=== PATIENT | male | born 1965 | race Caucasian/White ===

== ENCOUNTER 2023-08-03 15:41 | Outpatient (CLI) | payer BC, SELFPAY ==
[2023-08-03 16:27] LABS: Basophils Absolute Auto 0.05 K/mm3 (0.00-0.10); Basophils Percent Auto 0.8 % (0.0-1.0); Eosinophils Percent Auto 1.6 % (1.0-6.0); Hematocrit 46.2 % (40.0-54.0); Hemoglobin 15.6 g/dL (14.0-18.0); Immature Granulocyte Absolute 0.05 K/mm3 (0.00-0.00); Immature Granulocyte Percent A 0.8 % (0.0-0.0); Lymphocytes Percent Auto 24.8 % (18.0-42.0); Mean Corpuscular HGB Conc 33.8 g/dL (32.0-36.0); Mean Corpuscular Hemoglobin 29.8 pg (27.0-31.0); Mean Corpuscular Volume 88.2 fL (78.0-102.0); Mean Platelet Volume 10.7 fl (8.7-11.0); Monocytes Absolute Auto 0.62 K/mm3 (0.10-0.90); Monocytes Percent Auto 9.6 % (2.0-11.0); Neutrophils Percent Auto 62.4 % (50.0-70.0); Platelet Count Result 200 K/mm3 (150-420); Red Blood Count 5.24 M/mm3 (4.70-6.10); Red Cell Distribution Width 13.3 % (11.6-14.4); White Blood Count 6.4 K/mm3 (4.8-10.8)
[2023-08-03 16:43] LABS: Alanine Aminotransferase 30 U/L (16-63); Albumin Level 4.1 g/dL (3.4-5.0); Alkaline Phosphatase 53 U/L (46-116); Anion Gap 8 mmol/L (8-16); Aspartate Amino Transferase 20 U/L (15-37); Bilirubin,Total 0.7 mg/dL (0.00-1.00); Blood Urea Nitrogen 19 mg/dL (7-18); Calcium 9.1 mg/dL (8.5-10.1); Carbon Dioxide 30 mmol/L (21-32); Chloride 103 mmol/L (98-108); Estimated Glomerular Filt Rate 57; Glucose 93 mg/dL (70-99); Osmolality Calculated 294 mOsm/kg (285-295); Potassium 3.5 mmol/L (3.5-5.1); Sodium 141 mmol/L (136-145); Total Protein 7.2 g/dL (6.4-8.2)
[2023-08-03 16:57] LABS: Hemoglobin A1C 5.1 % (<5.7)
== END 2023-08-03 15:42 | disposition home or self-care (01) ==
LOC: CHSLAB 15:45
PROVIDERS: PCP Nurse Practitioner Family; Visit Provider Nurse Practitioner Family
DX: H43.12 Vitreous hemorrhage, left eye (principal)
CPT/HCPCS: 36415; 80053; 83036; 85025

== ENCOUNTER → 2023-08-15 08:02 | Outpatient (CLI) | payer BC, SELFPAY ==
--- NOTE | ~2023-08-15 | MR_ITS ---
EXAMINATION: MR orbits face neck wo/w con, MR brain/brain stem wo/w con DATE: 08/15/2023 09:10 INDICATION: Vitreous hemorrhage in the left eye. TECHNIQUE: 1. Magnetic resonance imaging (MRI) of the brain and brainstem was performed without and with 20 mL M ultihance intravenous contrast. Sequences included sagittal and axial T1-weighted SE, axial diffusion -weighted FS SE, axial 3D SWAN, axial T2-weighted FLAIR, and axial T2-weighted FSE. Postcontrast axia l and coronal T1-weighted SE was obtained. Apparent diffusion coefficient (ADC) maps were created. 2. MRI of the face and orbits was performed without and with the same 20 mL MultiHance intravenous co ntrast bolus. Small gmyta-du-sibz sequences of the orbits included coronal and axial T2-weighted FS F SE and T1-weighted FSE and postcontrast axial and coronal T1-weighted FS FSE. COMPARISON: None. FINDINGS: There are no areas of restricted diffusion to suggest acute infarction. No intracranial hemorrhage or abnormal intracranial mass lesion. There are a few scattered small foci of nonspecific increased T2- weighted signal intensity in the cerebral white matter, predominantly involving the deep and perivent ricular white matter which is within normal limits for age. There are no intraparenchymal signal abno rmalities seen on the other pulse sequences. The ventricles are symmetric and normal in size. There a re no abnormal extra-axial fluid collections. Flow voids are seen in the cerebral arteries on the T2- weighted sequences consistent with their expected patency. Mild mucosal thickening in the bilateral e thmoid sinuses. Visualized orbits and soft tissues are unremarkable. There are no areas of abnormal e nhancement on the post contrast images. IMPRESSION: 1. Normal aging brain with a few scattered small foci of nonspecific white matter T2 hyperintensity, likely sequela of chronic small vessel ischemic disease. 2.Normal orbits. Reviewed, dictated and finalized at location A. R SOFTENER INSTALLER IMPRESSION: 1. Normal aging brain with a few scattered small foci of nonspecific white jessica er T2 hyperintensity, likely sequela of chronic small vessel ischemic disease. 2.Normal orbits.
== END ==
PROVIDERS: PCP Nurse Practitioner Family
DX: H43.12 Vitreous hemorrhage, left eye (principal)
CPT/HCPCS: 70543; 70553; A9577

== ENCOUNTER 2023-08-16 15:46 | Emergency (ER) | payer BC, SELFPAY ==
[2023-08-16] VITALS (50 sets, daily range): BP systolic 167–267; BP diastolic 92–157; PULSE 67–102; RESP 8–26; TEMP 36.8–37.1; O2SAT 90–99
--- NOTE | ~2023-08-16 | CT_ITS ---
EXAMINATION: CT brain wo con DATE: 08/16/2023 18:35 INDICATION: Hypertension. TECHNIQUE: Computed tomography (CT) of the head was performed without intravenous contrast. The mA wa s adjusted according to patient size. Iterative reconstruction technique was employed. The dose-lengt h product was 681.00 mGy-cm. COMPARISON: Brain MRI 08/15/2023 FINDINGS: There is no intracranial hemorrhage, acute infarction, or abnormal intracranial mass lesion . The ventricles are normal in size. The orbits are normal. There is mild mucosal thickening in the e thmoid sinuses. There is an old fracture of left nasal process of maxilla. The mastoid air cells are normal. IMPRESSION: 1. Normal brain. Reviewed, dictated and finalized at location E. BOX ROUTEMAN IMPRESSION: 1. Normal brain.
--- NOTE | ~2023-08-16 | XR_ITS ---
EXAMINATION: XR chest 1V portable DATE: 08/16/2023 16:15 INDICATION: Hypertension TECHNIQUE: frontal view of the chest was obtained. COMPARISON: Chest radiograph dated 04/11/2011 FINDINGS: The lungs remain clear with no focal airspace opacities, pulmonary edema, pleural effusion or pneumot horax. The cardiomediastinal silhouette is normal. IMPRESSION: 1. No acute cardiopulmonary disease. Reviewed, dictated and finalized at location A. H MOVING MACHINE OPERATOR
--- NOTE | 2023-08-16 15:54 | ED.GENADULT ---
HPI - General Adult General Chief complaint: Unspecified Stated complaint: high blood pressure Time Seen by Provider: 08/16/23 15:54 Source: patient Mode of arrival: ambulatory Limitations: no limitations History of Present Illness HPI narrative: 57-year-old male with a history of hypertension( noncompliant with medication), diabetes mellitus presented to outpatient clinic as directed by boilermaker helper. In the clinic the patient was noted to have an elevated blood pressure of 260/137 the patient denied any chest pain or shortness of breath no headache the patient woke up on the 31 July with blurred vision on the left eye for which she saw an boilermaker helper. He was noted to have a retinal hemorrhage. He was also seen by retinal specialist. At that point of time his blood pressure was marginally elevated. Currently the patient does not have any symptoms. Related Data Home Medications Medication Instructions Recorded Confirmed No Home Medications 08/16/23 08/16/23 Allergies Allergy/AdvReac Type Severity Reaction Status Date / Time No Known Allergies Allergy Verified 08/16/23 16:05 Review of Systems Review of Systems: All systems reviewed & are unremarkable except as noted in HPI and below Constitutional: Constitutional: Reports as per HPI and Reports no additional constitutional complaints Eyes: Eyes: Reports as per HPI Comments: Left eye blurring ENT: Reports system reviewed and no additional complaints, except as documented and Reports as per HPI Cardiovascular: Cardiovascular: Reports as per HPI and Reports no additional cardiovascular complaints Respiratory: Respiratory: Reports as per HPI and Reports no additional respiratory complaints Gastrointestinal: Gastrointestinal: Reports as per HPI and Reports no additional gastrointestinal complaints Genitourinary: Genitourinary: Reports no additional male genitourinary complaints and Reports as per HPI Musculoskeletal: Musculoskeletal: Reports no additional musculoskeletal complaints and Reports as per HPI Integumentary/Breasts: Skin/Breast: Reports system reviewed and no additional complaints, except as docu and Reports as per HPI Neurologic: Reports system reviewed and no additional complaints, except as documented and Reports as per HPI Psychiatric: Psychiatric: Reports no additional psychiatric complaints and Reports as per HPI Endocrine: Endocrine: Reports no additional endocrine complaints and Reports as per HPI Hematologic/Lymphatic: Hematologic/Lymphatic: Reports no additional hematologic/lymphatic complaints and Reports as per HPI Allergic/Immunologic: Allergic/Immunologic: Reports no additional allergic/immunologic complaints and Reports as per HPI [facility] Past Medical History Medical History (Updated 08/16/23 @ 18:51 by Devin Polk MD) Diabetes mellitus Hypertension Family History Family History (Updated 08/16/23 @ 15:26 by Faby Franks CMA) Mother Diabetes mellitus Father COPD (chronic obstructive pulmonary disease) Social History Social History (Updated 08/16/23 @ 16:23 by Devin Polk MD) Social History: nonsmoker. No history of drug use. History of alcohol use. patient thinks he drinks around 12 beers a week Exam Narrative: Blood pressure is 260/137 Const: General: healthy appearing and no acute distress Nutritional Appearance: well nourished Orientation/consciousness: patient oriented x3 Limitations: no limitations HENMT: Head: normal to inspection Ears: external ears normal Face/Nose/Sinus: Normal external nose present Face and sinus: normal facial exam Mouth: Yes Normal oral and palatal mucosa present Throat: posterior oropharynx normal Eyes: Conjunctivae: conjunctivae normal Pupils: Equal, round and reactive pupils present EOM: EOMs intact bilaterally Direct Ophthalmoscopy: no photophobia Neck: Neck: normal visual inspection Swati
--- NOTE | 2023-08-16 15:57 | ECG_ITS ---
Measurements Intervals [place] Rate: 100 P: 52 OH: 128 QRS: 48 QRSD: 127 T: 202 QT: 377 QTc: 487 Interpretive Statements SINUS TACHYCARDIA POSSIBLE LEFT ATRIAL ENLARGEMENT INTRAVENTRICULAR CONDUCTION DELAY CONSIDER INFERIOR INFARCT, AGE INDETERMINATE ST-T WAVE ABNORMALITY IN LAT/HIGH LAT LEADS- CONSIDER ISCHEMIA ABNORMAL ECG NO PREVIOUS ECG AVAILABLE FOR COMPARISON Electronically Signed On 08-16-2023 16:13:16 SCUDDING INSPECTOR by Ra Smith D.O.
[2023-08-16] MEDS: LABETALOL HCL INJ 100 MG/20 ML VIAL 20 MG IV PUSH (16:04)
[2023-08-16 16:16] LABS: Basophils Absolute Auto 0.04 K/mm3 (0.00-0.10); Basophils Percent Auto 0.6 % (0.0-1.0); Eosinophils Absolute Auto 0.13 K/mm3 (0.02-0.50); Eosinophils Percent Auto 1.9 % (1.0-6.0); Hematocrit 46.3 % (40.0-54.0); Hemoglobin 15.7 g/dL (14.0-18.0); Immature Granulocyte Absolute 0.01 K/mm3 (0.00-0.00); Immature Granulocyte Percent A 0.1 % (0.0-0.0); Lymphocytes Absolute Auto 1.38 K/mm3 (1.10-4.50); Lymphocytes Percent Auto 20.4 % (18.0-42.0); Mean Corpuscular HGB Conc 33.9 g/dL (32.0-36.0); Mean Corpuscular Hemoglobin 29.4 pg (27.0-31.0); Mean Corpuscular Volume 86.7 fL (78.0-102.0); Mean Platelet Volume 10.2 fl (8.7-11.0); Monocytes Absolute Auto 0.64 K/mm3 (0.10-0.90); Monocytes Percent Auto 9.5 % (2.0-11.0); Neutrophils Absolute Auto 4.6 K/mm3 (1.7-7.2); Neutrophils Percent Auto 67.5 % (50.0-70.0); Platelet Count Result 237 K/mm3 (150-420); Red Blood Count 5.34 M/mm3 (4.70-6.10); Red Cell Distribution Width 13.2 % (11.6-14.4); White Blood Count 6.8 K/mm3 (4.8-10.8)
[2023-08-16] MEDS: cloNIDine HCL 0.2 MG TABLET PO (16:28)
[2023-08-16] MEDS: THIAMINE HCL 200 MG/2 ML VIAL 100 MG IV PUSH (16:29)
[2023-08-16] MEDS: LORazepam INJ (*CRX) 2 MG/ML VIAL 1 MG IV PUSH (16:31)
[2023-08-16 16:36] LABS: Partial Thromboplastin Time 30.1 SEC (23.90-30.70); Prothrombin Time 10.9 Seconds (9.50-12.10)
[2023-08-16 16:44] LABS: Alanine Aminotransferase 38 U/L (16-63); Albumin Level 4.3 g/dL (3.4-5.0); Alkaline Phosphatase 48 U/L (46-116); Anion Gap 13 mmol/L (8-16); Aspartate Amino Transferase 27 U/L (15-37); Bilirubin,Total 0.8 mg/dL (0.00-1.00); Blood Urea Nitrogen 18 mg/dL (7-18); Calcium 8.6 mg/dL (8.5-10.1); Carbon Dioxide 24 mmol/L (21-32); Chloride 98 mmol/L (98-108); Estimated CRCL calculation 60 ml/min; Estimated Glomerular Filt Rate 52; Glucose 106 mg/dL (70-99); NT Pro B Type Natriuretic Pept 1722 pg/mL (0-125); Osmolality Calculated 281 mOsm/kg (285-295); Potassium 3.3 mmol/L (3.5-5.1); Sodium 135 mmol/L (136-145); Total Protein 7.3 g/dL (6.4-8.2)
[2023-08-16 16:45] LABS: Lactic Acid Reflex 1.1 mmol/L (0.4-2.0)
--- NOTE | 2023-08-16 16:49 | PC.NURSE ---
HAS ARRIVED AT BEDSIDE. PT DENIES ANY NEEDS OR COMPLAINTS. PT REMAINS ASYMPTOMATIC TO HIS HTN AT THIS TIME. BP IS IMPROVING POST MEDICATION. WILL CONTINUE TO MONITOR.
[2023-08-16 16:52] LABS: Thyroid Stimulating Hormone 11.08 uIU/mL (0.36-3.74); Troponin I 47.4 ng/L (0.00-60.4); Uric Acid 9.3 mg/dL (3.5-7.2)
[2023-08-16 17:13] LABS: Appearance Urine Clear (Clear); Bilirubin Urine Negative (Negative); Color Urine Light Yellow (Yellow); Glucose Urine UA Negative (Negative); Ketones Urine Negative (Negative); Leukocyte Esterase Ur Negative LEU/UL (Negative); Nitrate Urine Negative (Negative); Protein Urine Negative (Negative); Specific Grav Ur <= 1.005 (1.010-1.020); Urobilinogen Urine 0.2 mg/dL (0.2-1.0)
[2023-08-16 17:16] LABS: Add Urine Microscopic? NO; Blood Urine Negative (Negative)
--- NOTE | 2023-08-16 17:53 | PC.NURSE ---
IS REQUESTING [facility] AT [facility]. CALL PLACED TO CALL CENTER.
--- NOTE | 2023-08-16 18:56 | PC.NURSE ---
son and are at bedside. all have been updated on pt status. pt is awaiting room assignment at [facility] at this time. [facility] notified with results. pt denies any needs or complaints. bp improving.
--- NOTE | 2023-08-16 19:05 | PC.NURSE ---
patient resting on stretcher, spouse and son at bedside. update provided and patient denies needs.
--- NOTE | 2023-08-16 20:41 | PC.NURSE ---
patient update provided including room assignment at transfer facility. spouse and son remains at bedside. patient aware of departure pending EMS arrival. patient ambulatory to bathroom at this time, denies needs or complaints.
--- NOTE | 2023-08-16 20:49 | PC.NURSE ---
pt given ice water, reconnected to monitors after ambulatory to bathroom. family remain at bedside.
[2023-08-22 12:41] LABS: PRA 1.38 ng/mL/h (0.25-5.82)
[2023-08-23 10:42] LABS: Metanephrine, Free 64 pg/mL (<=57); Normetanephrine, Free 298 pg/mL (<=148); Total, Free (MN + NMN) 362 pg/mL (<=205)
== END 2023-08-16 21:12 | disposition short-term general hospital (02) ==
PROVIDERS: Emergency Provider Internal Medicine Critical Care Medicine; PCP Nurse Practitioner Family
DX: I16.1 Hypertensive emergency (principal); E87.6 Hypokalemia; E11.9 Type 2 diabetes mellitus without complications; I10 Essential (primary) hypertension
CPT/HCPCS: 36415; 70450; 71045; 80053; 81003; 82088; 83605; 83835; 83880; 84244; 84443; 84484; 84550; 85025; 85610; 85730; 93005; 96374; 96375; 99285; A9270; J2060; J3411

== ENCOUNTER 2023-08-24 15:31 | Outpatient (CLI) | payer BC, SELFPAY ==
[2023-08-24 16:11] LABS: Anion Gap 11 mmol/L (8-16); Blood Urea Nitrogen 22 mg/dL (7-18); Calcium 8.5 mg/dL (8.5-10.1); Carbon Dioxide 27 mmol/L (21-32); Chloride 102 mmol/L (98-108); Estimated Glomerular Filt Rate 56; Glucose 97 mg/dL (70-99); Osmolality Calculated 293 mOsm/kg (285-295); Potassium 4.5 mmol/L (3.5-5.1); Sodium 140 mmol/L (136-145)
== END 2023-08-24 15:32 | disposition home or self-care (01) ==
LOC: CHSLAB 15:32
PROVIDERS: PCP Nurse Practitioner Family; Visit Provider Nurse Practitioner Family
DX: I10 Essential (primary) hypertension (principal)
CPT/HCPCS: 36415; 80048

== ENCOUNTER 2023-09-06 15:29 | Outpatient (CLI) | payer BC, SELFPAY ==
[2023-09-06 16:10] LABS: Cholesterol 194 mg/dL (0-200); HDL Direct 43 mg/dL (40-60); LDL Cholesterol Calculated 128 mg/dL (<130); Triglycerides 115 mg/dL (0-150)
[2023-09-06 16:18] LABS: Thyroid Stimulating Hormone Reflex 7.95 u/IU/mL (0.36-3.74)
[2023-09-09 16:52] LABS: Metanephrine, Free 46 pg/mL (<=57); Normetanephrine, Free 189 pg/mL (<=148); Total, Free (MN + NMN) 235 pg/mL (<=205)
== END 2023-09-06 15:30 | disposition home or self-care (01) ==
LOC: CHSLAB 15:31
PROVIDERS: PCP Nurse Practitioner Family; Visit Provider Internal Medicine Cardiovascular Disease
DX: I10 Essential (primary) hypertension (principal)
CPT/HCPCS: 36415; 80061; 83835; 84439; 84443

== ENCOUNTER 2023-09-19 15:33 | Outpatient (CLI) | payer BC, SELFPAY ==
[2023-09-19 16:27] LABS: Free T3 2.31 pg/mL (2.18-3.98); Free T4 Free Thyroxine 0.96 ng/dL (0.76-1.46); Thyroid Stimulating Hormone 9.68 uIU/mL (0.36-3.74)
[2023-09-23 05:59] LABS: Thyroid Peroxidase Antibodies <1 IU/mL (<9)
== END 2023-09-19 15:34 | disposition home or self-care (01) ==
LOC: CHSLAB 15:34
PROVIDERS: PCP Nurse Practitioner Family; Visit Provider Nurse Practitioner Family
DX: R79.89 Other specified abnormal findings of blood chemistry (principal)
CPT/HCPCS: 36415; 84439; 84443; 84481; 86376

== ENCOUNTER 2023-11-06 15:26 | Outpatient (CLI) | payer BC, SELFPAY ==
[2023-11-06 16:16] LABS: Thyroid Stimulating Hormone 6.14 uIU/mL (0.36-3.74)
== END 2023-11-06 15:27 | disposition home or self-care (01) ==
LOC: CHSLAB 15:28
PROVIDERS: PCP Nurse Practitioner Family; Visit Provider Nurse Practitioner Family
DX: R79.89 Other specified abnormal findings of blood chemistry (principal)
CPT/HCPCS: 36415; 84443

== ENCOUNTER 2024-03-21 15:36 | Outpatient (CLI) | payer BC, SELFPAY ==
[2024-03-21 16:26] LABS: Creatinine Urine 16.68 mg/dL (40-278); MALB Creatinine Ratio 77.9 mg/g (0-30); Microalbumin Urine Random < 13.0 mg/L
[2024-03-21 16:32] LABS: Alanine Aminotransferase 28 U/L (16-63); Albumin Level 4.3 g/dL (3.4-5.0); Alkaline Phosphatase 67 U/L (46-116); Anion Gap 11 mmol/L (4-12); Aspartate Amino Transferase 18 U/L (15-37); Bilirubin,Total 0.6 mg/dL (0.00-1.00); Blood Urea Nitrogen 24 mg/dL (7-18); Calcium 8.7 mg/dL (8.5-10.1); Carbon Dioxide 26 mmol/L (21-32); Chloride 101 mmol/L (98-108); Estimated Glomerular Filt Rate 53; Free T4 Free Thyroxine 0.95 ng/dL (0.76-1.46); Glucose 95 mg/dL (70-99); Osmolality Calculated 290 mOsm/kg (285-295); Potassium 4.1 mmol/L (3.5-5.1); Sodium 138 mmol/L (136-145); Thyroid Stimulating Hormone 9.87 uIU/mL (0.36-3.74); Total Protein 7.1 g/dL (6.4-8.2)
[2024-03-23 04:33] LABS: DHEA-Sulfate 142 mcg/dL (32-279)
[2024-03-25 12:29] LABS: Thyroid Peroxidase Antibodies <1 IU/mL (<9)
[2024-03-25 13:58] LABS: Metanephrine, Free 45 pg/mL (<=57); Normetanephrine, Free 163 pg/mL (<=148); Total, Free (MN + NMN) 208 pg/mL (<=205)
[2024-03-28 19:08] LABS: Thyroid Stimulating Immunoglob <89 % baseline (<140)
[2024-04-02 14:48] LABS: Thyrotropin Receptor Antibody <1.00 IU/L (< OR = 2.00)
[2024-04-05 15:53] LABS: Catecholamines, Total <387 pg/mL
== END 2024-03-21 15:37 | disposition home or self-care (01) ==
LOC: CHSLAB 15:38
PROVIDERS: PCP Nurse Practitioner Family; Visit Provider Internal Medicine
DX: R79.89 Other specified abnormal findings of blood chemistry (principal); I10 Essential (primary) hypertension; I16.1 Hypertensive emergency
CPT/HCPCS: 36415; 80053; 82043; 82088; 82384; 82627; 83519; 83835; 84244; 84439; 84443; 84445; 86376

== ENCOUNTER 2024-03-25 07:19 | Outpatient (CLI) | payer BC, SELFPAY ==
--- NOTE | ~2024-03-25 | CT_ITS ---
Non-contrast CT scan of the Abdomen and Pelvis Clinical indication: Abnormal GFR Technique: 2.5 mm axial scans were obtained through the abdomen and pelvis without intravenous or or al contrast. Dose reduction technique was used on this scan by utilizing automated exposure control a nd iterative reconstruction technique. The dose-length product (DLP) was 757.02 mGy-cm. Findings: Images through the lung bases reveal no abnormalities. There is no evidence of renal or ureteral calculi. The kidneys and the ureters are nondilated. The liver, spleen, pancreas, gallbladder, and adrenals appear normal. There are atherosclerotic calci fications of the aorta. There is no evidence of bowel obstruction. Images through the pelvis were performed. There is no evidence of ascites or lymphadenopathy. Urinary bladder unremarkable. No pelvic mass seen. Impression: No acute abnormality. Reviewed, dictated and finalized at [facility]. Impression: No acute abnormality.
[2024-03-30 15:28] LABS: Metanephrine, Total Urine 506 mcg/24 h (224-832); Metanephrine, Urine 88 mcg/24 h (90-315); Normetanephrine, Urine 418 mcg/24 h (122-676)
== END 2024-03-25 07:20 | disposition home or self-care (01) ==
LOC: CHSIMG 07:20
PROVIDERS: PCP Nurse Practitioner Family; Visit Provider Internal Medicine
DX: I10 Essential (primary) hypertension (principal); I16.1 Hypertensive emergency; R79.89 Other specified abnormal findings of blood chemistry
CPT/HCPCS: 74176; 83835

== ENCOUNTER 2024-04-12 16:13 | Outpatient (NON) | payer BC, SELFPAY ==
[2024-04-18 23:53] LABS: PRA 7.14 ng/mL/h (0.25-5.82)
== END 2024-04-12 16:14 | disposition home or self-care (01) ==
PROVIDERS: Visit Provider Internal Medicine
DX: I16.1 Hypertensive emergency (principal); R79.89 Other specified abnormal findings of blood chemistry; I10 Essential (primary) hypertension
CPT/HCPCS: 36415; 82088; 84244

== ENCOUNTER 2024-07-04 15:34 | Outpatient (CLI) | payer BC, SELFPAY ==
[2024-07-04 16:32] LABS: Alanine Aminotransferase 28 U/L (16-63); Albumin Level 4.2 g/dL (3.4-5.0); Alkaline Phosphatase 65 U/L (46-116); Anion Gap 11 mmol/L (4-12); Aspartate Amino Transferase 20 U/L (15-37); Bilirubin,Total 0.5 mg/dL (0.00-1.00); Blood Urea Nitrogen 26 mg/dL (7-18); Calcium 9.5 mg/dL (8.5-10.1); Carbon Dioxide 28 mmol/L (21-32); Chloride 103 mmol/L (98-108); Estimated Glomerular Filt Rate > 60; Free T4 Free Thyroxine 0.94 ng/dL (0.76-1.46); Potassium 4.2 mmol/L (3.5-5.1); Sodium 142 mmol/L (136-145); Thyroid Stimulating Hormone 8.44 uIU/mL (0.36-3.74)
[2024-07-04 16:40] LABS: Glucose 92 mg/dL (70-99); Osmolality Calculated 298 mOsm/kg (285-295)
== END 2024-07-04 15:35 | disposition home or self-care (01) ==
LOC: CHSLAB 15:36
PROVIDERS: PCP Nurse Practitioner Family; Visit Provider Internal Medicine
DX: R79.89 Other specified abnormal findings of blood chemistry (principal); N18.9 Chronic kidney disease, unspecified; I12.9 Hypertensive chronic kidney disease with stage 1 through stage 4 chronic kidney disease, or unspecified chronic kidney disease
CPT/HCPCS: 36415; 80053; 84439; 84443

== ENCOUNTER 2024-10-22 16:21 | Outpatient (NON) | payer BC, SELFPAY ==
--- OUTSIDE RECORDS SUMMARY | 2024-10-22 18:35 | XMS_ITS | Clinical Summary ---
Author Organization [facility] Address [address] [place] [address] Care Team Providers Care Antique Furniture Restorer Name Role Phone Dorinda Duque BEVERAGE MANAGER Primary Care Provider [phone] Allergies No known active allergies Medications No known medications Active Problems Problem Noted Date Diagnosed Date Hypertensive urgency 08/16/2023 Social History Tobacco Use Types Packs/Day Years Used Date Smoking Tobacco: Never Smokeless Tobacco: Never Tobacco Cessation:Counseling Given: Not Answered [facility] Utilities Answer Date Recorded In the past 12 months has e [employer], oil, or water [employer] threatened to shut off services in your home? No 08/17/2023 Humiliation, Afraid, Rape, and Kick questionnair e Answer Date Recorded Within the last year, have y ou been afraid of your partner or ex-partner? No 08/17/2023 Within the last year, have y ou been humiliated or emotionally abused in other ways by your partner or ex-partner? No Within the last year, have y ou been kicked, hit, slapped, or otherwise physically hurt by your partner or ex-partner? No 08/17/2023 Within the last year, have y ou been raped or forced to have any kind of sexual activity by your partner or ex-partner? No 08/17/2023 Social Connection and Isolat ion Panel [NHANES] Answer Date Recorded In a typical week, how many times do you talk on the phone with family, friends, or neighbors? More than three times a week 08/17/2023 How often do you get togethe r with friends or relatives? More than three times a week 08/17/2023 How often do you attend [facility] or hindu services? Never 08/17/2023 Do you belong to any clubs o r organizations such as worship groups, unions, fraternal or athletic groups, or school groups? No 08/17/2023 How often do you attend meet ings of the clubs or organizations you belong to? Never 08/17/2023 Are you , , di vorced, , never , or living with a partner? 08/17/2023 AUDIT-C Answer Date Recorded Q1: How often do you have a drink containing alcohol? 4 or more times a week 08/17/2023 Q2: How many drinks containi ng alcohol do you have on a typical day when you are drinking? 1 or 2 Q3: How often do you have si x or more drinks on one occasion? Weekly 08/17/2023 Overall Financial Resource Strain (CARDIA) Answe r Date Recorded How hard is it for you to pa y for the very basics like food, housing, medical care, and heating? Not hard at all 08/17/2023 [facility] - Occupational Stress Questionnaire Answer Date Recorded Do you feel stress - tense, restless, nervous, or anxious, or unable to sleep at night because your mind is troubled all the time - these days? Not at all 08/17/2023 Hunger Vital Sign Answer Date Recorded Within the past 12 months, y ou worried that your food would run out before you got the money to buy more. Never true 08/17/19 24 Within the past 12 months, t he food you bought just didn't last and you didn't have money to get more. Never true 08/17/2023 PRAPARE - Transportation Answer Date Re corded In the past 12 months, has l ack of transportation kept you from medical appointments or from getting medications? No 07/31 In the past 12 months, has l ack of transportation kept you from meetings, work, or from getting things needed for daily living? No 08/17/2023 Housing Stability Vital Sign Answer Ck e Recorded In the last 12 months, was t here a time when you were not able to pay the mortgage or rent on time? No 08/17/2023 In the last 12 months, how many places have you lived? 1 08/17/2023 In the last 12 months, was t here a time when you did not have a steady place to sleep or slept in a prison (including now)? No 08/17/2023 Sex and Gender Information Value Date Recorded Sex Assigned at Not on file Legal Sex Male 5:48 PM PLAIN CLOTHES POLICE OFFICER Gender Identity Not on file Sexual Orientation Not on file Last Filed Vital Signs Vital Sign Reading Time Taken Comments Blood Pressure 148/70 08/19/2023 12:14 PM PLAIN CLOTHES POLICE OFFICER Pulse 72 08/19/2023 12:14 PM PLAIN CLOTHES POLICE OFFICER Temperature 36.7 C (98.1 F) 08/19/2023 7:41 AM PLAIN CLOTHES POLICE OFFICER Respiratory Rate 18 08/19/2023 4:12 AM PLAIN CLOTHES POLICE OFFICER Oxygen Saturation 99% 08/19/2023 8:58 AM PLAIN CLOTHES POLICE OFFICER Inhaled Oxygen Concentration - - Weight 97.5 kg (215 lb) 08/16/2023 10:33 PM PLAIN CLOTHES POLICE OFFICER Height 177.8 cm (5' 10 ) 08/16/2023 10:33 PM PLAIN CLOTHES POLICE OFFICER Body Mass Index 30.85 08/16/2023 10:33 PM PLAIN CLOTHES POLICE OFFICER Plan of Treatment Health Maintenance Due Date Last Done Comments Colorectal Cancer Screening Colonoscopy (10 Years) 1965 Annual Physical 12/13/1966 Hepatitis C 12/13/1981 DTaP, Tdap and Td Vaccines (1 - Tdap) 12/13/1982 Zoster Vaccines (1 of 2) 12/13/2013 COVID-19 Vaccine ( season) 2024 05/30/2023, 06/13/2022, 07/21/2021, Additional history exists Influenza Adult (#1) 2024 05/30/2023, 06/13/20 22 RSV Immunization or 60+ Years (1 - 1-dose 75+ series) 12/13/2038 Meningococcal B Vaccine Aged Out No l onger eligible based on patient's age to complete this topic Meningococcal Vaccine Aged Out No cole alireza eligible based on patient's age to complete this topic Pneumococcal Vaccine: Pediatrics (0 to 5 Years) and At-Risk Patients (6 to 64 Years) Aged Out No longer eligible based on patient's age to complete this topic RSV Immunizations Under 20 Months Aged Out No longer eligible based on patient's age to complete this topic Insurance [facility] Advance Directives * Full Code (Latest Code Status on File) Date Activated Date Inactivated Comments 08/16/2023 10:40 PM 08/19/2023 3:25 PM Care Teams Antique Furniture Restorer Relationship Specialty Start Date End Date Dorinda Duque FNP [address] [place] [phone] PCP - General Nurse Practitioner Family 08/16/23
== END 2024-10-22 16:22 | disposition home or self-care (01) ==
PROVIDERS: Visit Provider Family Medicine
DX: R22.9 Localized swelling, mass and lump, unspecified (principal)
CPT/HCPCS: 88305

== ENCOUNTER 2024-10-31 08:06 | Outpatient (CLI) | payer BC, SELFPAY ==
--- OUTSIDE RECORDS SUMMARY | 2024-10-31 08:14 | XMS_ITS | Clinical Summary ---
Author Organization [facility] Address [address] [place] [address] Care Team Providers Care Dam Tender Assistant Name Role Phone Dorinda Duque DRAPERY INSTALLER Primary Care Provider [phone] Allergies No known active allergies Medications No known medications Active Problems Problem Noted Date Diagnosed Date Hypertensive urgency 08/16/2023 Social History Tobacco Use Types Packs/Day Years Used Date Smoking Tobacco: Never Smokeless Tobacco: Never Tobacco Cessation:Counseling Given: Not Answered [facility] Utilities Answer Date Recorded In the past 12 months has e [employer], oil, or water [employer] threatened to shut off services in your [...] week 08/17/2023 How often do you attend [facility] or amish services? Never 08/17/2023 Do you belong to any clubs o r organizations such as nondenominational groups, unions, fraternal or athletic groups, or [...] and heating? Not hard at all 08/17/2023 [facility] - Occupational Stress [...] place to sleep or slept in a long-term (including now)? No 08/17/2023 Sex and Gender Information Value Date Recorded Sex Assigned at Not on file Legal Sex Male 5:48 PM PHOTOGRAPHIC PRESS SCREWMAKER Gender Identity Not on file Sexual Orientation Not on file Last Filed Vital Signs Vital Sign Reading Time Taken Comments Blood Pressure 148/70 08/19/2023 12:14 PM PHOTOGRAPHIC PRESS SCREWMAKER Pulse 72 08/19/2023 12:14 PM PHOTOGRAPHIC PRESS SCREWMAKER Temperature 36.7 C (98.1 F) 08/19/2023 7:41 AM PHOTOGRAPHIC PRESS SCREWMAKER Respiratory Rate 18 08/19/2023 4:12 AM PHOTOGRAPHIC PRESS SCREWMAKER Oxygen Saturation 99% 08/19/2023 8:58 AM PHOTOGRAPHIC PRESS SCREWMAKER Inhaled Oxygen Concentration - - Weight 97.5 kg (215 lb) 08/16/2023 10:33 PM PHOTOGRAPHIC PRESS SCREWMAKER Height 177.8 cm (5' 10 ) 08/16/2023 10:33 PM PHOTOGRAPHIC PRESS SCREWMAKER Body Mass Index 30.85 08/16/2023 10:33 PM PHOTOGRAPHIC PRESS SCREWMAKER Plan of Treatment Health Maintenance Due Date Last Done Comments Colorectal Cancer Screening Colonoscopy (10 Years) 1965 Annual Physical 12/13/1966 Hepatitis C 12/13/1981 DTaP, Tdap and Td Vaccines (1 - Tdap) 12/13/1982 Zoster Vaccines (1 of 2) 12/13/2013 COVID-19 Vaccine ( season) 2024 05/30/2023, 06/13/2022, 07/21/2021, Additional history exists RSV Immunization or 60+ Years (1 - [...] patient's age to complete this topic Insurance [facility] Advance Directives * Full Code (Latest Code Status on File) Date Activated Date Inactivated Comments 08/16/2023 10:40 PM 08/19/2023 3:25 PM Care Teams Dam Tender Assistant Relationship Specialty Start Date End Date Dorinda Duque FNP [address] [place] [phone] PCP - General Nurse Practitioner Family 08/16/23
[2024-10-31 08:17] LABS: Basophils Absolute Auto 0.05 K/mm3 (0.00-0.10); Basophils Percent Auto 0.9 % (0.0-1.0); Eosinophils Absolute Auto 0.11 K/mm3 (0.02-0.50); Eosinophils Percent Auto 2.1 % (1.0-6.0); Hematocrit 44.9 % (40.0-54.0); Immature Granulocyte Absolute 0.04 K/mm3 (0.00-0.00); Immature Granulocyte Percent A 0.8 % (0.0-0.0); Lymphocytes Absolute Auto 1.02 K/mm3 (1.10-4.50); Lymphocytes Percent Auto 19.2 % (18.0-42.0); Mean Corpuscular HGB Conc 33.4 g/dL (32-36); Mean Corpuscular Hemoglobin 29.6 pg (27.0-31.0); Mean Corpuscular Volume 88.6 fL (78.0-102.0); Mean Platelet Volume 10.1 fl (8.7-11.0); Monocytes Absolute Auto 0.63 K/mm3 (0.10-0.90); Monocytes Percent Auto 11.9 % (2.0-11.0); Neutrophils Absolute Auto 3.46 K/mm3 (1.70-7.20); Neutrophils Percent Auto 65.1 % (50.0-70.0); Platelet Count Result 228 K/mm3 (150-420); Red Blood Count 5.07 M/mm3 (4.70-6.10); Red Cell Distribution Width 13.2 % (11.6-14.4); White Blood Count 5.3 K/mm3 (4.8-10.8)
[2024-10-31 08:26] LABS: Hemoglobin A1C 5.2 % (<5.7)
[2024-10-31 08:59] LABS: Alanine Aminotransferase 23 U/L (16-63); Alkaline Phosphatase 67 U/L (46-116); Anion Gap 9 mmol/L (4-12); Aspartate Amino Transferase 23 U/L (15-37); Bilirubin,Total 0.7 mg/dL (0.00-1.00); Blood Urea Nitrogen 23 mg/dL (7-18); Carbon Dioxide 29 mmol/L (21-32); Chloride 106 mmol/L (98-108); Cholesterol 229 mg/dL (0-200); Estimated Glomerular Filt Rate 57; Free T4 Free Thyroxine 1.07 ng/dL (0.76-1.46); Glucose 101 mg/dL (70-99); HDL Direct 50 mg/dL (40-60); LDL Cholesterol Calculated 162 mg/dL (<130); Osmolality Calculated 301 mOsm/kg (285-295); Potassium 4.2 mmol/L (3.5-5.1); Sodium 144 mmol/L (136-145); Thyroid Stimulating Hormone 4.81 uIU/mL (0.36-3.74); Triglycerides 83 mg/dL (0-150)
== END 2024-10-31 08:07 | disposition home or self-care (01) ==
PROVIDERS: PCP Nurse Practitioner Family; Visit Provider Nurse Practitioner Family
DX: Z00.00 Encounter for general adult medical examination without abnormal findings (principal); E03.9 Hypothyroidism, unspecified
CPT/HCPCS: 36415; 80053; 80061; 83036; 84439; 84443; 85025

== ENCOUNTER 2024-12-20 11:37 | Outpatient (CLI) | payer BC, SELFPAY ==
[2024-12-20 12:38] LABS: Cholesterol 214 mg/dL (0-200); HDL Direct 51 mg/dL; LDL Cholesterol Calculated 140 mg/dL (<130); Triglycerides 113 mg/dL (<150)
[2024-12-20 12:56] LABS: Free T4 Free Thyroxine 1.64 ng/dL (0.78-2.19)
== END 2024-12-20 11:38 | disposition home or self-care (01) ==
PROVIDERS: PCP Nurse Practitioner Family; Visit Provider Nurse Practitioner Family
DX: E03.9 Hypothyroidism, unspecified (principal); E78.00 Pure hypercholesterolemia, unspecified
CPT/HCPCS: 36415; 80061; 84439; 84443

== ENCOUNTER 2025-04-02 15:39 | Outpatient (CLI) | payer BC, SELFPAY ==
[2025-04-02 16:29] LABS: Cholesterol 136 mg/dL (0-200); HDL Direct 47 mg/dL; Triglycerides 145 mg/dL (<150)
[2025-04-02 16:46] LABS: Free T4 Free Thyroxine 1.39 ng/dL (0.78-2.19)
--- OUTSIDE RECORDS SUMMARY | 2025-04-02 16:59 | XMS_ITS | Clinical Summary ---
Author Organization [facility] Address [address] [place] [address] Care Team Providers Care Automation Controls Specialist Name Role Phone Dorinda Duque ARTICULATION OFFICER Primary Care Provider [phone] Allergies No known active allergies Medications No known medications Active Problems Problem Noted Date Diagnosed Date Hypertensive urgency 08/16/2023 Social History Tobacco Use Types Packs/Day Years Used Date Smoking Tobacco: Never Smokeless Tobacco: Never Tobacco Cessation:Counseling Given: Not Answered [facility] Utilities Answer Date Recorded In the past 12 months has e [employer], oil, or water [employer] threatened to shut off services in your [...] week 08/17/2023 How often do you attend [facility] or [facility] services? Never 08/17/2023 Do you belong to any clubs o r organizations such as jew groups, unions, fraternal or athletic groups, or [...] and heating? Not hard at all 08/17/2023 [facility] - Occupational [...] place to sleep or slept in a group home (including now)? No 08/17/2023 Sex and Gender Information Value Date Recorded Sex Assigned at Not on file Legal Sex Male 5:48 PM DISPLAY COORDINATOR Gender Identity Not on file Sexual Orientation Not on file Last Filed Vital Signs Vital Sign Reading Time Taken Comments Blood Pressure 148/70 08/19/2023 12:14 PM DISPLAY COORDINATOR Pulse 72 08/19/2023 12:14 PM DISPLAY COORDINATOR Temperature 36.7 C (98.1 F) 08/19/2023 7:41 AM DISPLAY COORDINATOR Respiratory Rate 18 08/19/2023 4:12 AM DISPLAY COORDINATOR Oxygen Saturation 99% 08/19/2023 8:58 AM DISPLAY COORDINATOR Inhaled Oxygen Concentration - - Weight 97.5 kg (215 lb) 08/16/2023 10:33 PM DISPLAY COORDINATOR Height 177.8 cm (5' 10) 08/16/2023 10:33 PM DISPLAY COORDINATOR Body Mass Index 30.85 08/16/2023 10:33 PM DISPLAY COORDINATOR Plan of Treatment Health Maintenance Due Date Last Done Comments Colorectal Cancer Screening Colonoscopy (10 Years) 1965 Annual Physical 12/13/1966 Hepatitis C 12/13/1981 DTaP, Tdap and Td Vaccines (1 - Tdap) 12/13/1982 Pneumococcal Vaccine: 50+ Years (1 of 1 - PCV) 12/13/2013 Zoster Vaccines (1 of 2) 12/13/2013 COVID-19 Vaccine ( - season) 2024 05/30/2023, 06/13/2022, 07/21/2021, Additional history [...] patient's age to complete this topic Insurance [facility] Advance Directives * Full Code (Latest Code Status on File) Date Activated Date Inactivated Comments 08/16/2023 10:40 PM 08/19/2023 3:25 PM Care Teams Automation Controls Specialist Relationship Specialty Start Date End Date Dorinda Duque FNP [address] [place] [phone] PCP - General Nurse Practitioner Family 08/16/23
[2025-04-02 17:00] LABS: Thyroid Stimulating Hormone 5.170 uIU/mL (0.465-4.680)
== END 2025-04-02 15:40 | disposition home or self-care (01) ==
LOC: CHSLAB 15:41
PROVIDERS: PCP Nurse Practitioner Family; Visit Provider Nurse Practitioner Family
DX: E03.9 Hypothyroidism, unspecified (principal); E78.5 Hyperlipidemia, unspecified
CPT/HCPCS: 36415; 80061; 84439; 84443

== ENCOUNTER 2025-05-09 02:35 | Day surgery (SDC) | payer BC, SELFPAY ==
[2025-05-05 16:09] VITALS: BMI 30.9
--- NOTE | 2025-05-05 16:16 | SUR.PREOP ---
[facility] has started construction of its new state of the art ER which will open Spring 2026. With this, we anticipate parking may be a challenge for some our surgical patients and families. Parking spaces are limited but are available for all Surgical, obstetrics, and ER patients sharing this lot. If you arrive and find you are having a hard time finding a parking space, please note that we understand the challenges, please drive around the hospital and park near Hospital Entrance 1. When you enter this entrance, you can ask a volunteer to direct or take you back to the surgical waiting area to check in. We appreciate everyone?s understanding of these expected challenges while we build for your future. Report to the Outpatient Waiting Room, entrance under the green pavilion located off [address], at time _6am on date _05/09/25 . Planned Procedure Time: ___730am .? Time changes happen often and if your time is changed the preop area will call you the afternoon before. - You and your visitor will be asked to self-screen and do not enter if you have any COVID symptoms. Please call surgeon if you need to reschedule. - A mask is optional within the hospital at this time. Patients may have a light meal before procedure. Take only the following medications with a SIP of water on the morning of surgery: all scheduled medication. DO NOT STOP ANY OF YOUR OTHER PRESCRIPTION MEDICATIONS PRIOR TO SURGERY EXCEPT THE FOLLOWING Hold all vitamins and supplements for 3 days per anesthesiologist. Medications to discontinue per physician n/a____ Date to take last dose Please no make-up, nail croatian, hairspray, perfume, deodorant, or body powder the day of surgery.? No jewelry (including any body piercings) or valuables the day of surgery, leave them at home.? Please take a shower or bath the night before, or the morning of, surgery with an antibacterial soap.? Wear comfortable, loose fitting clothing.? Children are encouraged to wear pajamas. - Jewelry must be removed prior to entering the operating room.? Rings and piercings that are not removed may be cut off. - The hospital will not accept responsibility for valuables.? - Please leave all valuables, including medications, at home the day of surgery. If you are going home after surgery, a licensed airport driver must drive you home.? - NO public transportation without another adult if you receive anesthesia. - We recommend that an adult stay with you for 24 hours following discharge. - We also recommend that you do not drive, make important decision, drink alcoholic beverages, or take any drugs that were not prescribed by your health care provider for at least 24 hours after your discharge time. Follow any additional instructions given to you from your surgeon. Telephone instructions given to ___Pat and asked if any additional questions and then verbalized understanding. Patient advised to call surgeon office or pre surgery nurse liaison [phone] if any additional questions.
[2025-05-09 08:05] VITALS: BP 163/76; PULSE 67; RESP 16; TEMP 36.2; O2SAT 98
--- NOTE | 2025-05-09 09:49 | WPDHPUPDATE1 ---
History and Physical Update Update Date/Time: 05/09/25 09:49 History and Physical has been reviewed, including an updated exam of the patient. There are NO changes in the patient's condition. Risks, benefits, and alternatives have been discussed and questions answered. Patient agrees to proceed with procedure.
[2025-05-09 10:00] VITALS: BP 131/66; PULSE 79; RESP 20; O2SAT 97
[2025-05-09 10:11] VITALS: BP 179/90; PULSE 71; RESP 18; O2SAT 96
[2025-05-09] MEDS: LIDO 1%/EPINEPHRINE 1:100,000 20 ML VIAL INFILTRATE (10:13)
[2025-05-09] MEDS: BUPivacaine HCL 0.5% 10 ML AMP 20 ML INFILTRATE (10:14)
--- NOTE | 2025-05-09 10:17 | S_PTH ---
PATIENT: Matt Brody LOC: [facility] U#:[id number] AGE/SX: 59/M ROOM: RE05/09/[address]: Xavi Diggs MD : 1965 BED: DIS: 05/09/2025 SPEC #: [id number] RECD: 05/09/25 11:25 STATUS: LETTY REQ #: [id number] ANTIONETTE: 05/09/25 10:[address]: Xavi Diggs DEPT: [facility] Surgical RECD BY: William Israel ENTERED: 05/09/25 11:25 SP TYPE: Surgical OTHR DR: Dorinda Duque APRN Tissues: A - Cyst Procedures: Hematoxylin and Eosin Stain Gross and Microscopic Level 4
[2025-05-09 10:21] VITALS: BP 170/89; PULSE 72; RESP 18; O2SAT 95
[2025-05-09 10:27] VITALS: BP 171/90; PULSE 72; RESP 18; O2SAT 95
[2025-05-09 10:35] VITALS: BP 171/83; PULSE 68; O2SAT 97
--- NOTE | 2025-05-09 10:43 | W.PM.PROC2 ---
Procedure Note - Detailed Date of Procedure 05/09/25 Pre-op Diagnosis Ruptured sebaceous cyst mid back Post-op Diagnosis Same Procedure Performed Excision ruptured right upper back sebaceous cyst with 4cm intermediate layered wound closure. Surgeon Xaiv Diggs MD Anesthesia Local Indications Patient is a 59-year-old gentleman who initially presented to my office with an infected mid upper back sebaceous cyst. It was lanced in the office and the acute infection has resolved. He presents now for excision the cyst wall remnants. Findings The patient had a [id number] cyst in the mid upper back region. It required a 4cm intermediate layered wound closure after excision. Description of Procedure After informed consent was obtained patient brought to the operating room was placed prone on the operating table. The area the mid upper back was then prepped and draped usual sterile fashion. Time-out was then performed correctly identifying the patient as well as procedure to be performed. Site marking was verified. No antibiotics were given as no IV was started. I 1st started by anesthetizing the area around the cyst in the mid upper back utilizing 1% lidocaine mixed with 0.5% Marcaine with some epinephrine. Once adequate anesthesia was achieved I then made a vertical elliptical incision parallel to the long axis of the back around the cyst wall. A deeply down through the dermis skin with a scalpel. I then used electrocautery to completely excise the ellipse of tissue encompassing the whole cyst wall and overlying skin. The cyst measured approximately [id number]. It was sent to pathology for examination. Hemostasis was then achieved incision electrocautery. I then proceeded to close the incision with a intermediate layered wound closure utilizing interrupted 2-0 Vicryl sutures in the deeper subcutaneous tissues. This was followed by layer of interrupted 3-0 Vicryl sutures in the deep dermal layer. A the skin edges were then approximated utilizing a running subcuticular 4-0 Monocryl suture. The incision was then cleaned the skin glue was applied. The patient tolerated the procedure well no complications. All sponges, needles, and instrument counts were correct at the end procedure. EBL was _5__cc. The patient was awakened and taken to recovery in stable and satisfactory condition. Implants None Estimated Blood Loss 5 Drains No Packing No Pathology Yes (Back cyst to pathology) Complications No immediate complications Condition Stable Disposition PACU [facility] Billing Surgery - Charge Forward: Surgery Billing
--- NOTE | 2025-05-09 11:02 | SUR.PHASEII ---
Patient states his BP is always high.
== END 2025-05-09 10:59 | disposition home or self-care (01) ==
PROVIDERS: PCP Nurse Practitioner Family; Visit Provider Surgery
PROC: (CPT 11403; principal; 2025-05-09 09:00)
DX: L72.0 Epidermal cyst (principal); I10 Essential (primary) hypertension; E03.9 Hypothyroidism, unspecified; Z98.890 Other specified postprocedural states
CPT/HCPCS: 11403; 12032; 88305; J2004

== ENCOUNTER 2025-05-13 15:41 | Outpatient (CLI) | payer BC, SELFPAY ==
[2025-05-13 16:17] LABS: Albumin Level 4.6 g/dL (3.5-5.1); Anion Gap 11 mmol/L (4-12); Blood Urea Nitrogen 21 mg/dL (9-20); Calcium 9.3 mg/dL (8.4-10.2); Carbon Dioxide 24 mmol/L (22-30); Chloride 105 mmol/L (98-107); Estimated Glomerular Filt Rate 44; Glucose 104 mg/dL (65-110); Osmolality Calculated 293 mOsm/kg (285-295); Potassium 4.2 mmol/L (3.4-5.0); Sodium 140 mmol/L (137-145); Total Protein Urine Random 13 mg/dL
[2025-05-13 16:24] LABS: Ur Ttl Prot Creatinine Ratio 0.40 mg/mg (0-0.20)
--- OUTSIDE RECORDS SUMMARY | 2025-05-13 17:13 | XMS_ITS | Clinical Summary ---
Author Organization [facility] Address [address] [place] [address] Care Team Providers Care Stock Sheets Cleaner Inspector Name Role Phone Dorinda Duque CHIEF AIRPORT GUIDE Primary Care Provider [phone] Allergies No known active allergies Medications No known medications Active Problems Problem Noted Date Diagnosed Date Hypertensive urgency 08/16/2023 Social History Tobacco Use Types Packs/Day Years Used Date Smoking Tobacco: Never Smokeless Tobacco: Never Tobacco Cessation:Counseling Given: Not Answered [facility] Utilities Answer Date Recorded In the past 12 months has [employer], oil, or water [employer] threatened to shut off services in your [...] or ex-partner? No 08/17/2023 Social Connection and Isolation Panel Answer Date Recorded In a typical week, how many times do you talk on the phone with family, friends, or neighbors? More than three times a week 08/17/2023 How often do you get togethe r with friends or relatives? More than three times a week 08/17/2023 How often do you attend [facility] or confucianism services? Never 08/17/2023 Do you belong to any clubs o r organizations such as tenriism groups, unions, fraternal or athletic groups, or [...] and heating? Not hard at all 08/17/2023 [facility] - Occupational [...] place to sleep or slept in a half-way (including now)? No 08/17/2023 Sex and Gender Information Value Date Recorded Sex Assigned at Not on file Legal Sex Male 5:48 PM RECORDS MANAGEMENT DIRECTOR Gender Identity Not on file Sexual Orientation Not on file Last Filed Vital Signs Vital Sign Reading Time Taken Comments Blood Pressure 148/70 08/19/2023 12:14 PM RECORDS MANAGEMENT DIRECTOR Pulse 72 08/19/2023 12:14 PM RECORDS MANAGEMENT DIRECTOR Temperature 36.7 C (98.1 F) 08/19/2023 7:41 AM RECORDS MANAGEMENT DIRECTOR Respiratory Rate 18 08/19/2023 4:12 AM RECORDS MANAGEMENT DIRECTOR Oxygen Saturation 99% 08/19/2023 8:58 AM RECORDS MANAGEMENT DIRECTOR Inhaled Oxygen Concentration - - Weight 97.5 kg (215 lb) 08/16/2023 10:33 PM RECORDS MANAGEMENT DIRECTOR Height 177.8 cm (5' 10) 08/16/2023 10:33 PM RECORDS MANAGEMENT DIRECTOR Body Mass Index 30.85 08/16/2023 10:33 PM RECORDS MANAGEMENT DIRECTOR Plan of Treatment Health Maintenance Due Date Last Done Comments Colorectal Cancer Screening Colonoscopy (10 Years) 1965 Annual Physical 12/13/1966 Hepatitis C 12/13/1981 DTaP, Tdap and Td Vaccines (1 - Tdap) 12/13/1982 Pneumococcal Vaccine: 50+ Years (1 of 1 - PCV) 12/13/2013 Zoster Vaccines (1 of 2) 12/13/2013 COVID-19 Vaccine ( - season) 2025 05/30/2023, 06/13/2022, 07/21/2021, Additional history exists Influenza Adult (#1) 2025 05/30/2023, 06/13/20 22 RSV Immunization or 60+ [...] patient's age to complete this topic Insurance [facility] Advance Directives * Full Code (Latest Code Status on File) Date Activated Date Inactivated Comments 08/16/2023 10:40 PM 08/19/2023 3:25 PM Care Teams Stock Sheets Cleaner Inspector Relationship Specialty Start Date End Date Dorinda Duque FNP [address] [place] [phone] PCP - General Nurse Practitioner Family 08/16/23
[2025-05-14 09:06] LABS: Parathyroid Intact 30.8 (7.5-53.5)
== END 2025-05-13 15:42 | disposition home or self-care (01) ==
LOC: CHSLAB 15:41
PROVIDERS: PCP Nurse Practitioner Family; Visit Provider Internal Medicine Nephrology
DX: N18.31 Chronic kidney disease, stage 3a (principal); I12.9 Hypertensive chronic kidney disease with stage 1 through stage 4 chronic kidney disease, or unspecified chronic kidney disease; N25.81 Secondary hyperparathyroidism of renal origin; E55.9 Vitamin D deficiency, unspecified
CPT/HCPCS: 36415; 80069; 82306; 82570; 83970; 84156